=== PATIENT | female | born 1955 | race Caucasian/White ===

== ENCOUNTER 2023-02-17 19:18 | Emergency (ER) | payer MEDICARE ==
[~2023-02-17] VITALS: Ht 170.1 cm; Wt 76.2 kg
[2023-02-17 19:29] VITALS: BP 147/88
== END 2023-02-17 20:18 | disposition home or self-care (01) ==
LOC: ED 19:18
DX: S92.901A Unspecified fracture of right foot, initial encounter for closed fracture (principal); W51.XXXA Accidental striking against or bumped into by another person, initial encounter; Y93.89 Activity, other specified; Y92.89 Other specified places as the place of occurrence of the external cause; Y99.8 Other external cause status